=== PATIENT | female | born 1985 | race Two or more races ===

== ENCOUNTER 2020-01-03 05:26 | Day surgery (SDC) | payer OTHER ==
[~2020-01-03 05:26] MED LIST: FOLIC ACID0.8 M1 PO; MULTI-VITAMIN1 EACH PO
== END 2020-01-03 14:45 | disposition home or self-care (01) ==
LOC: CIR.AMB 05:26 → EDBD 07:00 → CIR.AMB 14:45
PROVIDERS: ATTEND Obstetrics & Gynecology
DX: O02.1 Missed abortion (principal)